=== PATIENT | female | born 1950 | race Hispanic/Latino ===

== ENCOUNTER 2019-04-03 10:17 | Outpatient (CLI) | payer MEDICARE ==
--- NOTE | 2019-04-06 14:25 | Mammography Report ---
DEXA BONE DENSITY SCAN INDICATION: Postmenopausal, osteopenia. COMPARISON: None available. DEFINITIONS: BMD = Bone Mineral Density T-score = BMD related to mean peak bone mass of a young child (mean expressed in standard deviation) Z-score = age matched BMD is expressed in SD World Health Organization (WHO) diagnostic criteria Normal T score > -1 SD Osteopenia T score between -1 and -2.4 SD Osteoporosis T score -2.5 SD or below. LUMBAR SPINE (L1-L4): Bone mineral density (BMD) is 0.65 g/cm2. T-score is -3.6 (standard deviations of Young Adult mean). Z-score is -1.6 (standard deviations of Age Matched mean). Osteoporosis, fracture risk: High LEFT FEMORAL NECK: Bone mineral density (BMD) is 0.684 g/cm2. T-score is -2.1 (standard deviations of Young Adult mean). Z-score is -0.7 (standard deviations of Age Matched mean). Osteopenia, fracture risk: Increased IMPRESSION: WHO Classification: Osteoporosis. Fracture Risk: High. Signer Name: Roberto Alejandro MD Signed: 04/06/2019 2:20 PM Workstation Name: [id number]
== END 2019-04-03 10:18 | disposition home or self-care (01) ==
LOC: SPVWC 10:17
PROVIDERS: ATTEND Internal Medicine
DX: M85.80 Other specified disorders of bone density and structure, unspecified site (principal); Z78.0 Asymptomatic menopausal state
CPT/HCPCS: 77080